=== PATIENT | male | born 1980 ===

== ENCOUNTER 2021-04-12 11:39 | Emergency (ER) | payer OTHER ==
[2021-04-12] MEDS ORDERED: ACETAMINOPHEN W/CODEINE 300-30 MG TAB PO ONE (12:18)
--- NOTE | 2021-04-12 12:45 | XRay Report ---
XR chest routine 2V INDICATION / CLINICAL INFORMATION: cough. COMPARISON: None available. FINDINGS: SUPPORT DEVICES: None. HEART /PULMONARY VASCULATURE: No significant abnormality. LUNGS / PLEURA: No significant pulmonary or pleural abnormality. No pneumothorax. ADDITIONAL FINDINGS: No significant additional findings. IMPRESSION: 1. No acute findings. Signer Name: Gucci Rivas MD Signed: 04/12/2021 12:41 PM Workstation Name: [id number]
--- NOTE | 2021-04-12 13:11 | Emergency Department Report ---
ED General Adult HPI - General Chief complaint: Abdominal Pain Stated complaint: ABD AND BACK PAIN Time Seen by Provider: 04/12/21 12:17 Source: patient Mode of arrival: Ambulatory Limitations: Language Barrier - History of Present Illness Initial comments: Patient is a 41-year-old male presents emergency room with complaints of generalized body aches that began 3 days ago. Patient states that he is also been having a frequent cough. He reports that he has pain in his ribs whenever he coughs. He reports he has had subjective fever and diarrhea. He denies any shortness of breath, vomiting, sore throat, ear pain. Patient reports that his has similar symptoms but states that she tested negative for COVID-19. He reports he has been fully vaccinated for COVID-19. Patient denies any past medical history. No allergies to medications. He states he is a smoker. Severity scale (0 -10): 10 - Related Data Previous Rx's Medication Instructions Recorded Last Taken Type Benzonatate [Tessalon Perles] 100 mg PO Q8HR PRN #12 capsule 04/12/21 Unknown Rx Hyoscyamine Subl [Levsin Sl 0.125 0.125 mg SL Q6HR PRN #10 tab 04/12/21 Unknown Rx TAB] Naproxen 375 mg PO BID PRN #20 tablet 04/12/21 Unknown Rx guaiFENesin ER [Mucinex ER] 600 mg PO Q12H #14 tablet.er 04/12/21 Unknown Rx Allergies Allergy/AdvReac Type Severity Reaction Status Date / Time No Known Allergies Allergy Unverified 04/12/21 11:41 ED Review of Systems ROS: Stated complaint: ABD AND BACK PAIN Other details as noted in HPI Comment: All other systems reviewed and negative ED Past Medical Hx - Past Medical History Previous Medical History?: No - Surgical History Past Surgical History?: Yes Additional Surgical History: ANKLE - Medications Home Medications: Home Medications Medication Instructions Recorded Confirmed Last Taken Type Benzonatate [Tessalon Perles] 100 mg PO Q8HR PRN #12 capsule 04/12/21 Unknown Rx Hyoscyamine Subl [Levsin Sl 0.125 0.125 mg SL Q6HR PRN #10 tab 04/12/21 Unknown Rx TAB] Naproxen 375 mg PO BID PRN #20 tablet 04/12/21 Unknown Rx guaiFENesin ER [Mucinex ER] 600 mg PO Q12H #14 tablet.er 04/12/21 Unknown Rx ED Physical Exam - General Limitations: Language Barrier General appearance: alert, in no apparent distress - Head Head exam: Present: atraumatic, normocephalic - Eye Eye exam: Present: normal appearance - ENT ENT exam: Present: mucous membranes moist - Respiratory Respiratory exam: Present: normal lung sounds bilaterally. Absent: respiratory distress, wheezes, rales, rhonchi, stridor, chest wall tenderness, accessory muscle use, decreased breath sounds, prolonged expiratory - Cardiovascular Cardiovascular Exam: Present: regular rate, normal rhythm, normal heart sounds. Absent: systolic murmur, diastolic murmur, rubs, gallop - Neurological Exam Neurological exam: Present: alert, oriented X3 - Psychiatric Psychiatric exam: Present: normal affect, normal mood - Skin Skin exam: Present: warm, dry, intact ED Course Vital Signs 04/12/21 04/12/21 11:42 14:51 Temperature 99.7 F H 98.1 F Pulse Rate 92 H 86 Respiratory 18 17 Rate Blood Pressure 125/85 115/79 [Right] O2 Sat by Pulse 97 98 Oximetry ED Medical Decision Making - Lab Data Result diagrams: 04/12/21 12:59 04/12/21 12:59 Lab Results 04/12/21 04/12/21 Range/Units 12:59 12:59 WBC 6.9 (4.5-11.0) K/mm3 RBC 5.52 H (3.65-5.03) M/mm3 Hgb 16.5 H (11.8-15.2) gm/dl Hct 50.1 H (35.5-45.6) % MCV 91 (84-94) fl MCH 30 (28-32) pg MCHC 33 (32-34) % RDW 13.4 (13.2-15.2) % Plt Count 275 (140-440) K/mm3 Lymph % (Auto) 28.7 (13.4-35.0) % [place] % (Auto) 15.4 H (0.0-7.3) % Eos % (Auto) 0.1 (0.0-4.3) % Baso % (Auto) 0.2 (0.0-1.8) % Lymph # (Auto) 2.0 (1.2-5.4) K/mm3 [place] # (Auto) 1.1 H (0.0-0.8) K/mm3 Eos # (Auto) 0.0 (0.0-0.4) K/mm3 Baso # (Auto) 0.0 (0.0-0.1) K/mm3 Seg Neutrophils % 55.6 (40.0-70.0) % Seg Neutrophils # 3.8 (1.8-7.7) K/mm3 Sodium 139 (137-145) mmol/L Potassium 5.3 H (3.6-5.0) mmol/L Chloride 99.8 (98-107) mmol/L Carbon Dioxide 26 (22-30) mmol/L Anion Gap 19 mmol/L BUN 11 (9-20) mg/dL Creatinine 1.2 (0.8-1.3) mg/dL Estimated GFR > 60 ml/min BUN/Creatinine Ratio 9 % Glucose 85 (75-100) mg/dL Calcium 9.0 (8.4-10.2) mg/dL Total Bilirubin < 0.20 (0.1-1.2) mg/dL AST 24 (5-40) units/L ALT 33 (7-56) units/L Alkaline Phosphatase 105 (35-129) units/L Total Protein 6.8 (6.3-8.2) g/dL Albumin 4.3 (3.9-5) g/dL Albumin/Globulin Ratio 1.7 % Vital Signs 04/12/21 04/12/21 11:42 14:51 Temperature 99.7 F H 98.1 F Pulse Rate 92 H 86 Respiratory 18 17 Rate Blood Pressure 125/85 115/79 [Right] O2 Sat by Pulse 97 98 Oximetry - Radiology Data Radiology results: report reviewed Ordering Physician: NUNU FRIEDMAN Date of Service: 04/12/21 Procedure(s): XR chest routine 2V Accession Number(s): [id number] cc: NUNU FRIEDMAN Fluoro Time In Minutes: XR chest routine 2V INDICATION / CLINICAL INFORMATION: cough. COMPARISON: None available. FINDINGS: SUPPORT DEVICES: None. HEART /PULMONARY VASCULATURE: No significant abnormality. LUNGS / PLEURA: No significant pulmonary or pleural abnormality. No pneumothorax. ADDITIONAL FINDINGS: No significant additional findings. IMPRESSION: 1. No acute findings. Signer Name: Theresa Fierro MD Signed: 04/12/2021 12:41 PM Workstation Name: [id number] Transcribed By: CHAYA Dictated By: THERESA FIERRO MD Electronically Authenticated By: THERESA FIERRO MD Signed Date/Time: 04/12/211240 DD/ 40 TD/TT: - Medical Decision Making Patient is a 41-year-old male presents emergency room with complaints of generalized body aches that began 3 days ago. Patient states that he is also been having a frequent cough. He reports that he has pain in his ribs whenever he coughs. He reports he has had subjective fever and diarrhea. He denies any shortness of breath, vomiting, sore throat, ear pain. Patient reports that his has similar symptoms but states that she tested negative for COVID-19. He reports he has been fully vaccinated for COVID-19. Patient denies any past medical history. No allergies to medications. He states he is a smoker. Vitals with low-grade temperature, otherwise normal. Breath sounds are clear bilaterally, no wheezing, no rales, no rhonchi. Labs are stable. Chest x-ray 1. No acute findings. Symptoms appear likely consistent with URI. Discussed supportive care and symptomatic treatment with patient. Discussed the importance of oral hydration. Discussed strict return precautions and the importance of primary care follow-up. Advised patient to please take medication as prescribed. Increase your fluid intake. Follow-up with your primary care doctor for reexamination. Return to emergency room for any new or worsening symptoms. Recommend outpatient COVID-19 testing and if positive will need to self quarantine for 10 days from onset of symptoms. Critical care attestation.: If time is entered above; I have spent that time in minutes in the direct care of this critically ill patient, excluding procedure time. ED Disposition Clinical Impression: URI (upper respiratory infection) Qualifiers: URI type: unspecified URI Qualified Code(s): J06.9 - Acute upper respiratory infection, unspecified Disposition: 01 HOME / SELF CARE / HOMELESS Is pt being admited?: No Does the pt Need Aspirin: No Condition: Stable Instructions: Viral Respiratory Infection Additional Instructions: please take medication as prescribed. Increase your fluid intake. Follow-up with your primary care doctor for reexamination. Return to emergency room for any new or worsening symptoms. Recommend outpatient COVID-19 testing and if positive will need to self quarantine for 10 days from onset of symptoms. Prescriptions: Hyoscyamine Subl [Levsin Sl 0.125 TAB] 0.125 mg SL Q6HR PRN #10 tab PRN Reason: diarrhea/abdominal cramping guaiFENesin ER [Mucinex ER] 600 mg PO Q12H #14 tablet.er Naproxen 375 mg PO BID PRN #20 tablet PRN Reason: pain Benzonatate [Tessalon Perles] 100 mg PO Q8HR PRN #12 capsule PRN Reason: cough Referrals: PRIMARY CAREMD [Primary Care Provider] - 3-5 Days HERNAN TALBERT MD [Staff Physician] - 3-5 Days [facility] [Provider Group] - 3-5 Days Time of Disposition: 14:34 Print Language: BENINESE
[2021-04-12 13:54] LABS: Basophils % (Auto) 0.2 % (0.0-1.8); Eosinophils % (Auto) 0.1 % (0.0-4.3); Hematocrit 50.1 % (35.5-45.6); Hemoglobin 16.5 gm/dl (11.8-15.2); Lymphocytes % (Auto) 28.7 % (13.4-35.0); Mean Corpuscular HGB Conc 33 % (32-34); Mean Corpuscular Volume 91 fl (84-94); Monocytes # (Auto) 1.1 K/mm3 (0.0-0.8); Monocytes % (Auto) 15.4 % (0.0-7.3); Platelet Count 275 K/mm3 (140-440); Red Blood Count 5.52 M/mm3 (3.65-5.03); Red Cell Distribution Width 13.4 % (13.2-15.2)
[2021-04-12 14:27] LABS: Alanine Aminotransferase 33 units/L (7-56); Albumin 4.3 g/dL (3.9-5); BUN/Creatinine Ratio 9; Blood Urea Nitrogen 11 mg/dL (9-20); Hemolysis Index 12
[2021-04-12 14:52] VITALS: BP 115/79
== END 2021-04-12 14:51 | disposition home or self-care (01) ==
LOC: ED 11:39
DX: J06.9 Acute upper respiratory infection, unspecified (principal); Z98.890 Other specified postprocedural states
CPT/HCPCS: 36415; 71046; 80053; 85025; 99284